=== PATIENT | female | born 1945 | race Caucasian/White ===

== ENCOUNTER → 2016-08-30 | Outpatient (CLI) | payer OTHER ==
[~2016-08-30] MED LIST: ATOR10TA88 PO; CHLOTAB3 PO; CHOL1000 PO; CYCL0.052 OPB; HYDR-5688 PO; KETO10TA PO; LISI10TA PO; MULT-845 PO; NRN/300 PO; NXM/40 PO; PRED10TA PO
--- NOTE | 2016-08-30 15:02 | MAMMOGRAPHY REPORT ---
BILATERAL DIGITAL SCREENING MAMMOGRAM WITH CAD: 08/30/2016 CLINICAL HISTORY: Routine screening. Patient has no complaints. TECHNIQUE: Bilateral CC and MLO views were wobtained. Current study was also evaluated with a Comput er Aided Detection (CAD) system. COMPARISON: Comparison is made to exams dated: 08/30/2015 mammogram, 08/28/2014 mammogram, 08/27/2013 mammogram, 07/05/2011 mammogram, 06/20/2010 mammogram, and 06/16/2009 mammogram - [facility]. BREAST COMPOSITION: There are scattered areas of fibroglandular density in both breasts. FINDINGS: The parenchymal pattern is similar to prior exams. No developing mass, architectural dist ortion or cluster of suspicious microcalcifications is seen in either breast. IMPRESSION: ACR BI-RADS CATEGORY 2: BENIGN There is no mammographic evidence of malignancy. A 1 year screening mammogram is recommended. The p atient will receive written notification of the results. Approximately 10% of breast cancers are not detected with mammography. A negative mammographic repor t should not delay biopsy if a clinically suggestive mass is present. Gabbi Brewer M.D. ay/:08/30/2016 13:59:42 Doctorate Of Chiropractic: Anabell Comer, [facility] letter sent: Normal 1/2 BI-RADS Code: ACR BI-RADS Category 2: Benign
== END | disposition home or self-care (01) ==
LOC: C.MAMM 13:38
PROVIDERS: ATTEND Internal Medicine
DX: Z12.31 Encounter for screening mammogram for malignant neoplasm of breast (principal)

== ENCOUNTER 2016-12-22 11:58 | Emergency (ER) | payer OTHER ==
[~2016-12-22] VITALS: Ht 156.2 cm; Wt 83.6 kg
[2016-12-22 12:02] VITALS: TEMP 36.5; Ht 156.2 cm; Wt 83.6 kg
[2016-12-22] MEDS ORDERED: MULT-845 PO (12:48)
[2016-12-22] MEDS ORDERED: HYDR-5688 PO (12:48)
[2016-12-22] MEDS ORDERED: NXM/40 PO (12:48)
[2016-12-22] MEDS ORDERED: ATOR10TA88 PO (12:48)
[2016-12-22] MEDS ORDERED: CHOL1000 PO (12:48)
[2016-12-22] MEDS ORDERED: CHLOTAB3 PO (12:48)
[2016-12-22] MEDS ORDERED: PRED10TA PO (12:48)
[2016-12-22] MEDS ORDERED: LISI10TA PO (12:48)
[2016-12-22] MEDS ORDERED: CYCL0.052 OPB (12:48)
--- NOTE | 2016-12-22 15:46 | DIAGNOSTIC IMAGING REPORT ---
LUMBAR SPINE W/O CONTRAST CLINICAL HISTORY: 71 years-old Female presenting with low back pain, pain radiates down the right leg, right leg numbness, no prior back surgery or urinary incontinence. TECHNIQUE: Multisequence, multiplanar MR imaging of the lumbar spine was performed without the use of intravenous contrast. IV contrast: None. COMPARISON: None. FINDINGS: Vertebral body heights and bone marrow signal intensity preserved. 10 mm of grade 1 anterolisthesis of L4 on L5. Pars defect may be present on the left at L4. Intervertebral disc spaces preserved. Multilevel degenerative changes include mild disc bulges from L2-3 through L5-S1, further detailed below: T12-L1: Normal. L1-2: Normal. L2-3: Mild disc bulge and ligamentum flavum thickening result in crowding of the cauda equina without impingement. Mild left and moderate right neural foraminal narrowing. L3-4: Mild disc bulge, ligamentum flavum thickening, and facet arthropathy cause only mild crowding of the cauda equina. Mild bilateral neural foraminal narrowing. L4-5: In combination with the anterior subluxation of the L4 vertebral body, facet arthropathy and ligamentum flavum thickening contribute to severe spinal stenosis with complete effacement of the CSF. This results in buckling of the cauda equina. Severe right and mild left neural foraminal narrowing. Abutment of the exiting right L4 nerve root. L5-S1: Mild disc bulge without significant spinal canal narrowing. Mild bilateral neural foraminal narrowing. The spinal cord ends in good position at L1. No paraspinal soft tissue edema. Subcutaneous edema in the lower lumbar region, nonspecific. IMPRESSION: 1. 10 mm of grade 1 anterolisthesis of L4 on L5 with possible left L4 pars defect. 2. Multilevel degenerative changes most severe at L4-5, which in combination with anterolisthesis, result in severe spinal stenosis and severe right neural foraminal narrowing with abutment of the exiting right L4 nerve root. Findings concerning for impingement of the cauda equina at this level. The report will be called/faxed according to standard departmental protocol. Electronically signed by: Miguel Crespo M.D. 12/22/2016 3:44 PM Dictated Date/Time: 12/22/2016 3:34 PM
[2016-12-22] MEDS ORDERED: KETO10TA PO (16:34)
[2016-12-22] MEDS ORDERED: NRN/300 PO (16:34)
--- NOTE | 2016-12-22 16:34 | EMERGENCY ROOM VISIT NOTE ---
History Report prepared by [employer]: Justus Urena Under the Supervision of: Dr. Karl Perez D.O. First contact with patient: 13:38 Chief Complaint: LEG PAIN,LEG INJURY Stated Complaint: BACK PAIN AND NUMBNESS IN RIGHT LEG History of Present Illness The patient is a 71 year old female who presents to the Emergency Room with complaints of right sided lower back pain starting a few weeks ago and worsening about a week ago. She has pain radiation down the back or her right leg. She had been receiving chiropractic treatment with some relief. A few days ago, the patient was power washing and her pain worsened. The patient is now having right leg numbness. She has been resting for the past week without relief. She has been taking the medications as prescribed by her PCP 4 days ago without relief. The patient states that her PCP suspected that her pain may be sciatic pain. The patient rates a pain intensity of 8.5/10. She denies fevers, chills, bowel/urinary incontinence, or any other complaints. Source of History: patient Onset: a few weeks ago Position: back (lower) Symptom Intensity: 8.5/10 Timing: worsening Modifying Factors (Relieving): rest (without relief), other (chiropractic treatment with some relief; meds as prescribed by her PCP without relief) Associated Symptoms: No fevers, No chills Review of Systems See HPI for pertinent positives & negatives. A total of 10 systems reviewed and were otherwise negative. Past Medical & Surgical Medical Problems: (1) Cellulitis of wrist (2) HTN (hypertension) (3) Type II diabetes mellitus Family History Patient reports no known family medical history. Social History Smoking Status: Never Smoker Marital Status: Occupation Status: employed Current/Historical Medications Scheduled Atorvastatin (Lipitor), 10 MG PO HS Chlorzoxazone (Parafon Forte Dsc), 500 MG PO BID Cholecalciferol (Vitamin D3), 1 TAB PO DAILY Cyclosporine (Ophth) (Restasis), 1 DROP OPB BID Esomeprazole Magnesium (Nexium), 40 MG PO DAILY Gabapentin (Neurontin), 1 CAP PO BID Lisinopril (Prinivil), 10 MG PO QAM Multiple Vitamins W/ Minerals (Centrum Silver Adult 50+), 1 TAB PO DAILY Prednisone Tab (Prednisone), 10 MG PO UD Scheduled PRN Hydrocodone/Acetaminophen 5MG/325MG (Amber 5MG/325MG), 1 TABLET PO Q4 PRN for Pain Ketorolac (Toradol), 10 MG PO Q6H PRN for Pain Allergies Coded Allergies: No Known Allergies (Unverified , 12/22/16) Physical Exam Vital Signs Date Time Temp Pulse Resp B/P (MAP) Pulse Ox O2 Delivery O2 Flow Rate FiO2 12/22/16 16:30 69 16 130/83 96 Room Air 12/22/16 14:24 71 16 164/87 93 Room Air 12/22/16 12:02 36.5 111 18 148/85 97 Room Air Physical Exam CONSTITUTIONAL/VITAL SIGNS: Reviewed / noted above. GENERAL: Non-toxic in appearance. INTEGUMENTARY: Warm, dry, and [place]. HEAD: Normocephalic. EYES: without scleral icterus or trauma. ENT/OROPHARYNX: clear and moist. LYMPHADENOPATHY/NECK: Is supple without lymphadenopathy or meningismus. RESPIRATORY: Lungs clear and equal. CARDIOVASCULAR: Regular rate and rhythm. GI/ABDOMEN: Soft and nontender. No organomegaly or pulsatile mass. No rebound or guarding. Normal bowel sounds. EXTREMITIES: Warm and well perfused. BACK: No CVA tenderness. NEUROLOGICAL: Decreased reflexes in the right patellar area. PSYCHIATRIC: normal affect. MUSCULOSKELETAL: Normally developed with good muscle tone. Medical Decision & Procedures ER Provider Diagnostic Interpretation: MRI results as stated below per my review and radiologist interpretation: LUMBAR SPINE W/O CONTRAST CLINICAL HISTORY: 71 years-old Female presenting with low back pain, pain radiates down the right leg, right leg numbness, no prior back surgery or urinary incontinence. TECHNIQUE: Multisequence, multiplanar MR imaging of the lumbar spine was performed without the use of intravenous contrast. IV contrast: None. COMPARISON: None. FINDINGS: Vertebral body heights and bone marrow signal intensity preserved. 10 mm of grade 1 anterolisthesis of L4 on L5. Pars defect may be present on the left at L4. Intervertebral disc spaces preserved. Multilevel degenerative changes include mild disc bulges from L2-3 through L5-S1, further detailed below: T12-L1: Normal. L1-2: Normal. L2-3: Mild disc bulge and ligamentum flavum thickening result in crowding of the cauda equina without impingement. Mild left and moderate right neural foraminal narrowing. L3-4: Mild disc bulge, ligamentum flavum thickening, and facet arthropathy cause only mild crowding of the cauda equina. Mild bilateral neural foraminal narrowing. L4-5: In combination with the anterior subluxation of the L4 vertebral body, facet arthropathy and ligamentum flavum thickening contribute to severe spinal stenosis with complete effacement of the CSF. This results in buckling of the cauda equina. Severe right and mild left neural foraminal narrowing. Abutment of the exiting right L4 nerve root. L5-S1: Mild disc bulge without significant spinal canal narrowing. Mild bilateral neural foraminal narrowing. The spinal cord ends in good position at L1. No paraspinal soft tissue edema. Subcutaneous edema in the lower lumbar region, nonspecific. IMPRESSION: 1. 10 mm of grade 1 anterolisthesis of L4 on L5 with possible left L4 pars defect. 2. Multilevel degenerative changes most severe at L4-5, which in combination with anterolisthesis, result in severe spinal stenosis and severe right neural foraminal narrowing with abutment of the exiting right L4 nerve root. Findings concerning for impingement of the cauda equina at this level. The report will be called/faxed according to standard departmental protocol. Electronically signed by: Miguel Crespo M.D. 12/22/2016 3:44 PM Dictated Date/Time: 12/22/2016 3:34 PM ED Course 1338: Previous medical records were reviewed. The patient was evaluated in room C04. A complete history and physical examination was performed. 1614: I discussed the patient's case with Dr. Ferguson, orthopedic surgeon with [facility]. He will evaluate the patient in his office on December 26 at 8:30 am. 1635: On reevaluation, the patient is resting comfortably. I discussed the results and findings with the patient. She verbalized agreement of the treatment plan. She was discharged home. 1643: Toradol Inj 60 mg IM 1645: Decadron Inj 10 mg IM Medical Decision Medication Reconciliation: I attest that I have personally reviewed the patient' s current medication list. Blood pressure Screening: Patient was found to have normal blood pressure on screening and does not require follow-up. Differential considered includes cauda equina syndrome, conus medullaris, spinal cord compression syndrome, peripheral nerve compression, fractures or subluxations, intra-abdominal pathology such as abdominal aortic aneurysm or kidney stones, muscle strain, transverse myelitis, spinal cord injury. This is a 71-year-old female who presents to the ED with a chief complaint of right leg pain. The patient states that she has some low back pain as well. She's had this for a few weeks. She states that she saw her doctor 4 days ago and was placed on Amber, prednisone and a muscle relaxer. She states that her symptoms have gotten a little worse over the past couple of days. The medication she is currently on does not seem to be helping. The patient's symptoms are worse with walking. She has decreased patellar reflexes on the right, otherwise her exam is unremarkable. She has normal sensation and muscle strength. She denies any bowel or bladder dysfunction. MRI of the spine reveals multilevel degenerative changes as well as severe spinal stenosis in the L4-5 area. There is severe right neural foraminal narrowing with abutment of the exiting L4 nerve root. This concerning for impingement of the cauda equina at this level. I spoke with Dr. Asif after about this patient. He recommended seeing the patient on Sunday at 8:30 in the morning. He also recommended the patient be started on Neurontin as well as Toradol. She was given an IM injection of Toradol and Decadron here as well as provided with a walker. She will return over the weekend if her symptoms worsen. Impression Primary Impression: Spinal stenosis Additional Impression: Sciatica Scribe Attestation The scribe's documentation has been prepared under my direction and personally reviewed by me in its entirety. I confirm that the note above accurately reflects all work, treatment, procedures, and medical decision making performed by me. Departure Information Dispostion Home / Self-Care Prescriptions Ketorolac (Toradol) 10 Mg Tab 10 MG PO Q6H Y for Pain, #20 TAB Prov: Karl Perez D.O. 12/22/16 Gabapentin (NEURONTIN) 300 Mg Cap 1 CAP PO BID for 30 Days, #30 CAP 0 Refills Prov: Karl Perez D.O. 12/22/16 Referrals Milla Romero M.D. (PCP) Gopal Ferguson, DO Forms HOME CARE DOCUMENTATION FORM, IMPORTANT VISIT INFORMATION Patient Instructions [facility] Additional Instructions Follow-up with Dr. Ferguson (back surgeon) Sunday12/26/16 at 8:30 am in his office. Neurontin as prescribed. Toradol as prescribed. Us walker. Continue current medications. Problem Qualifiers
[2016-12-22] MEDS ORDERED: KETOROLAC TROMETHAMINE 60 MG/2 ML VIAL IM STA (16:43)
[2016-12-22] MEDS ORDERED: DEXAMETHASONE SOD INJ 10 MG/ML VIAL IM ONE (16:45)
[2016-12-22 17:25] VITALS: BP 160/71; PULSE 70; O2SAT 96
== END 2016-12-22 17:40 | disposition home or self-care (01) ==
LOC: C.EDB 11:59 → C.EDC 17:40
DX: M54.41 Lumbago with sciatica, right side (principal); I10 Essential (primary) hypertension; E11.9 Type 2 diabetes mellitus without complications; Z79.899 Other long term (current) drug therapy

== ENCOUNTER → 2017-01-09 | Outpatient (CLI) | payer OTHER ==
[2017-01-09 12:43] LABS: ALT/SGPT 27 U/L (12-78); AST/SGOT 19 U/L (15-37); BLOOD UREA NITROGEN 20 mg/dl (7-18); BUN/CREATININE RATIO 24.5 (10-20); CARBON DIOXIDE 28 mmol/L (21-32); CHLORIDE 109 mmol/L (98-107); CHOLESTEROL 179 mg/dl (0-200); CREATININE 0.82 mg/dl (0.60-1.20); GLUCOSE 99 mg/dl (70-99); POTASSIUM 4.7 mmol/L (3.5-5.1); SODIUM 140 mmol/L (136-145)
[2017-01-09 12:46] LABS: ALB/GLOB RATIO 1.2 (0.9-2); ALKALINE PHOSPHATASE 73 U/L (45-117); HDL CHOLESTEROL 59 mg/dl; LDL CHOLESTEROL CALCULATED 83 mg/dl; TRIGLYCERIDES 185 mg/dl (0-150); VERY LOW DENSITY LIPOPROT CALC 37 mg/dl
[2017-01-09 12:53] LABS: ESTIMATED AVERAGE GLUCOSE 131 mg/dl; HA1C FLAG Normal (Normal)
== END | disposition home or self-care (01) ==
LOC: C.LABPBG 10:14
PROVIDERS: ATTEND Internal Medicine
DX: E11.9 Type 2 diabetes mellitus without complications (principal); I10 Essential (primary) hypertension; E78.5 Hyperlipidemia, unspecified

== ENCOUNTER → 2017-08-31 | Outpatient (CLI) | payer OTHER ==
[~2017-08-31] MED LIST changes: +ATOR10TA82 PO; -ATOR10TA88 PO; -KETO10TA PO
--- NOTE | 2017-09-03 12:43 | MAMMOGRAPHY REPORT ---
BILATERAL DIGITAL SCREENING MAMMOGRAM TOMOSYNTHESIS WITH CAD: 08/31/2017 CLINICAL HISTORY: Routine screening. Patient has no complaints. TECHNIQUE: Breast tomosynthesis in addition to standard 2D mammography was performed. Current study was also evaluated with a Computer Aided Detection (CAD) system. COMPARISON: Comparison is made to exams dated: 08/30/2015 mammogram, 08/30/2016 mammogram, 08/28/2014 m ammogram, 08/27/2013 mammogram, 07/05/2012 mammogram, and 07/05/2011 mammogram - [facility]. BREAST COMPOSITION: There are scattered areas of fibroglandular density in both breasts. FINDINGS: No suspicious masses, calcifications, or areas of architectural distortion are noted in ei ther breast. There has been no significant interval change compared to prior exams. Asymmetry in the right lateral anterior breast is stable compared to prior exams. IMPRESSION: ACR BI-RADS CATEGORY 2: BENIGN There is no mammographic evidence of malignancy. A 1 year screening mammogram is recommended. The pa tient will receive written notification of the results. Approximately 10% of breast cancers are not detected with mammography. A negative mammographic report should not delay biopsy if a clinically suggestive mass is present. Cathy Willett M.D. /:08/31/2017 14:23:18 Mail Agent: Anabell TALBERT)(M), [facility] letter sent: Normal 1/2 BI-RADS Code: ACR BI-RADS Category 2: Benign
== END | disposition home or self-care (01) ==
LOC: C.MAMM 13:37
PROVIDERS: ATTEND Internal Medicine
DX: Z12.31 Encounter for screening mammogram for malignant neoplasm of breast (principal)

== ENCOUNTER → 2018-01-25 | Outpatient (CLI) | payer OTHER ==
[2018-01-25 17:05] LABS: HEMOGLOBIN A1C 6.1 % (4.5-5.6)
[2018-01-25 17:09] LABS: ALBUMIN 3.8 gm/dl (3.4-5.0); ALKALINE PHOSPHATASE 76 U/L (45-117); ALT/SGPT 21 U/L (12-78); AST/SGOT 21 U/L (15-37); BLOOD UREA NITROGEN 10 mg/dl (7-18); CALCIUM 9.3 mg/dl (8.5-10.1); CARBON DIOXIDE 28 mmol/L (21-32); CHOLESTEROL 157 mg/dl (0-200); CREATININE 0.82 mg/dl (0.60-1.20); GLUCOSE,FASTING 98 mg/dl (70-99); LDL CHOLESTEROL CALCULATED 80 mg/dl; POTASSIUM 4.5 mmol/L (3.5-5.1); SODIUM 138 mmol/L (136-145)
== END | disposition home or self-care (01) ==
LOC: C.LABPBG 11:23
PROVIDERS: ATTEND Internal Medicine
DX: E78.5 Hyperlipidemia, unspecified (principal); I10 Essential (primary) hypertension; E11.9 Type 2 diabetes mellitus without complications